=== PATIENT | female | born 1975 | race Caucasian/White ===

== ENCOUNTER 2021-11-01 19:19 | Emergency (ER) | payer OTHER, MEDICARE, SELFPAY ==
[2021-11-01 20:25] VITALS: BP 129/85; PULSE 91; RESP 16; TEMP 37.7; O2SAT 100
--- NOTE | 2021-11-01 21:00 | ED.URI ---
HPI - URI/Sore Throat General Chief Complaint: Upper Respiratory Infection Stated Complaint: headache,eyes burn,tired,body hurts Time Seen by Provider: 11/01/21 20:53 Source: patient and RN notes reviewed Mode of arrival: ambulatory Limitations: no limitations History of Present Illness HPI Narrative: Patient presents today complaining of chills, body aches, headache, cough. Symptoms began 2 days ago. Denies shortness of breath or any additional symptoms. She has been taking TheraFlu and ibuprofen with some relief. She has had some COVID-19 exposures at work. She has not been vaccinated against COVID-19. MD elicited complaint: cough Related Data Home Medications Medication Instructions Recorded Confirmed bupropion HCl 300 mg PO DAILY 11/01/21 11/01/21 conjugated estrogens [Premarin] 0.625 mg PO DAILY 11/01/21 11/01/21 hydrochlorothiazide 25 mg PO DAILY 11/01/21 11/01/21 metoprolol succinate 200 mg PO DAILY 11/01/21 11/01/21 pravastatin 80 mg PO DAILY 11/01/21 11/01/21 Allergies Allergy/AdvReac Type Severity Reaction Status Date / Time No Known Allergies Allergy Verified 11/01/21 20:48 Review of Systems Review of Systems: CONSTITUTIONAL: Denies fever, or sweats.+ Body aches, chills EYES: Denies visual changes, redness, or discharge. ENT: Denies rhinorrhea, congestion, sore throat, or otalgia. CARDIOVASCULAR: Denies chest pain, palpitations, or edema. RESPIRATORY: Denies dyspnea.+ Cough GASTROINTESTINAL: Denies abdominal pain, nausea, vomiting, or diarrhea. GENITOURINARY: Denies dysuria or hematuria. SKIN: Denies rash, itching, or wounds. MUSCULOSKELETAL: Denies back pain, joint pain, or myalgia. NEUROLOGIC: Denies numbness, tingling, or weakness.+ Headache PSYCH: Denies depression or anxiety. PMFSH Comments At time of signature, I have reviewed and agree with nursing past medical, surgical, social and family history unless otherwise noted. Please see nursing chart for further information. There is no relevant family history pertinent to the presenting complaint Exam Narrative: GENERAL: Mildly ill-appearing, well-nourished, and in no acute distress. HEAD: Normocephalic, atraumatic. EYES: EOMI. No redness or drainage. Conjunctivae normal. ENT: Mucous membranes pink and moist. Nares clear. No rhinorrhea. TMs normal bilaterally. Throat mildly erythematous without edema or exudate. Uvula midline. NECK: Normal AROM. Supple. No lymphadenopathy. CHEST: No respiratory distress. Clear to auscultation. HEART: Regular rate and rhythm. No murmur appreciated. Normal peripheral pulses. EXTREMITIES: Normal range of motion. No edema. SKIN: Warm, dry, no rash. Capillary refill normal. Normal skin turgor. NEURO: No focal deficits. Alert and oriented x3. Gait steady. PSYCH: Normal affect. No signs of depression or anxiety. Course Course Level of Care: Express Care Visit Vital Signs Vital signs: Vital Signs Temperature 100 F H 11/01/21 20:25 Pulse Rate 91 11/01/21 20:25 Respiratory Rate 16 11/01/21 20:25 Blood Pressure 129/85 11/01/21 20:25 Pulse Oximetry 100 11/01/21 20:25 Temperature 100 F H 11/01/21 20:25 Pulse Rate 91 11/01/21 20:25 Respiratory Rate 16 11/01/21 20:25 Blood Pressure 129/85 11/01/21 20:25 Pulse Oximetry 100 11/01/21 20:25 Reviewed. Pt has been instructed to follow up with her PCP regarding her elevated blood pressure today. MDM - URI/Sore Throat Differential Diagnosis Differential diagnosis: Likely upper respiratory infection, viral infection and other (COVID-19) Lab Data Attestation: I reviewed the patient's lab results. Labs: Lab Results 11/01/21 Range/Units 20:25 POC SARS CoV-2 Ag Positive (Negative) Critical Care Time Critical Care Time Critical Care Time: No Discharge Plan Discharge Clinical Impression: COVID-19 Patient Disposition: Home, Self-Care Condition: Stable Instructions: COVID-19 (Coronavirus Disease 20
== END 2021-11-01 21:10 | disposition home or self-care (01) ==
PROVIDERS: Emergency Provider Nurse Practitioner
DX: U07.1 COVID-19 (principal); E78.00 Pure hypercholesterolemia, unspecified; I10 Essential (primary) hypertension
CPT/HCPCS: 87426; 99213; C9803; G0463

== ENCOUNTER 2023-04-05 01:23 | Day surgery (SDC) | payer OTHER, MEDICARE, SELFPAY ==
[2023-03-28 13:52] VITALS: BMI 29.0
[2023-04-05 06:57] VITALS: BP 134/80; PULSE 66; RESP 16; TEMP 36.2; O2SAT 100; BMI 28.3
[2023-04-05] MEDS: LACTATED RINGERS 1,000 ML 150 ML IV CONT (07:05)
--- NOTE | 2023-04-05 07:53 | P.PNAN_ITS ---
Anes - Initial Pre Proc Eval Procedure: Operation Date: 04/05/23 08:15 Proposed Procedures p Screening Colonoscopy - Chriss Peguero MD Date/Time: 04/05/23 07:53 Surgeon: Chriss Peguero MD Pre Op Diagnosis: neoplasm screening Patient Data Age: 48 Gender: F Height: 1.73 m Weight: 84.6 kg Last Vital Signs Temp 36.2 C L 04/05/23 06:57 Pulse 66 04/05/23 06:57 Resp 16 04/05/23 06:57 BP 134/80 04/05/23 06:57 Pulse Ox 100 04/05/23 06:57 O2 Del Method Room Air 04/05/23 06:57 Allergies Allergy/AdvReac Type Severity Reaction Status Date / Time No Known Allergies Allergy Verified 04/05/23 06:54 Home Medications Medication Instructions Recorded Confirmed Type bupropion HCl 300 mg 24 hr tablet, 300 mg PO DAILY 11/01/21 04/05/23 History extended release hydrochlorothiazide 25 mg tablet 25 mg PO DAILY 11/01/21 04/05/23 History metoprolol succinate 200 mg 200 mg PO DAILY 11/01/21 04/05/23 History tablet,extended release 24 hr pravastatin 80 mg tablet 80 mg PO DAILY 11/01/21 04/05/23 History docusate sodium 100 mg capsule 100 mg PO DAILY 03/28/23 04/05/23 History ferrous sulfate 325 mg (65 mg 325 mg PO BID 03/28/23 04/05/23 History iron) tablet (FeroSul) Patient hx anesthesia problems: none Family hx anesthesia problems: none Results Review: All pre-operative results and documents have been reviewed as part of the pre- operative evaluation. [facility] Past Medical History Medical History (Updated 04/05/23 @ 07:55 by Bj Cohen MD) Colon cancer screening HTN (hypertension) Hyperlipidemia Lupus (systemic lupus erythematosus) Osteoarthritis Rheumatoid arthritis Social History Social History Smoking packs per day: 0.5 Smoking cigarettes per day: 10.0 Years smoked: 20 Smoking pack-years: 10.00 Smoking status: Former smoker Tobacco type: cigarettes and e-cigarettes/vaping Additional smoking assessment comments: NOW VAPE Alcohol intake: never Substance use: never Substance use type: does not use Living arrangements: with family Spiritual care concerns: No Anes - Eval Final PreProcedure Day of Procedure 04/05/23 07:53 Patient weight: overweight Heart: regular rate and rhythm Lungs: clear to auscultation and normal air movement Airway: Mallampati scale class II Neurological: alert and oriented Last oral intake: >/= 8 hours ASA classification: III Emergent: no Anesthetic plan: proceed Anesthesia type and monitoring: general GIVS Results Review: All pre-operative results and documents have been reviewed as part of the pre-op erative evaluation. Informed Consent: The patient's anesthetic plan and its attendant risks and benefits were discussed with the patient/family/POA. Questions were solicited and answers provided to the satisfaction of the patient/family/POA.
--- NOTE | 2023-04-05 07:53 | PM.HPGS ---
History of Present Illness History of Present Illness Consent: Risks, benefits, and alternatives have been discussed and questions answered. Patient agrees to proceed with procedure. Chief complaint: neoplasm screening Narrative: Winsome Dela Cruz is a 48 year old female here for first screening colonoscopy Review of Systems Constitutional: Constitutional: Denies headache(s) and Denies weakness Eyes: Eyes: Denies blurry vision ENT: Reports Normal hearing present, Denies headache(s) and Denies neck pain Cardiovascular: Cardiovascular: Denies chest pain and Denies dyspnea Respiratory: Respiratory: Denies dyspnea Gastrointestinal: Gastrointestinal: Reports no additional gastrointestinal complaints Genitourinary: Genitourinary: Denies dysuria Musculoskeletal: Musculoskeletal: Denies neck pain Integumentary/Breasts: Skin/Breast: Denies dry skin Neurologic: Reports Normal hearing present, Denies headache(s) and Denies weakness Psychiatric: Psychiatric: Denies anxiety Endocrine: Endocrine: Denies change in body appearance Hematologic/Lymphatic: Hematologic/Lymphatic: Denies easy bleeding Allergic/Immunologic: Allergic/Immunologic: Denies urticaria PMF Past Medical History Medical History (Updated 04/05/23 @ 07:54 by Chriss Peguero MD) Colon cancer screening Social History Social History Smoking packs per day: 0.5 Smoking cigarettes per day: 10.0 Years smoked: 20 Smoking pack-years: 10.00 Smoking status: Former smoker Tobacco type: cigarettes and e-cigarettes/vaping Additional smoking assessment comments: NOW VAPE Alcohol intake: never Substance use: never Substance use type: does not use Living arrangements: with family Spiritual care concerns: No Meds Home Medications and Allergies Home Medications Medication Instructions Recorded Confirmed Type bupropion HCl 300 mg 24 hr tablet, 300 mg PO DAILY 11/01/21 04/05/23 History extended release hydrochlorothiazide 25 mg tablet 25 mg PO DAILY 11/01/21 04/05/23 History metoprolol succinate 200 mg 200 mg PO DAILY 11/01/21 04/05/23 History tablet,extended release 24 hr pravastatin 80 mg tablet 80 mg PO DAILY 11/01/21 04/05/23 History docusate sodium 100 mg capsule 100 mg PO DAILY 03/28/23 04/05/23 History ferrous sulfate 325 mg (65 mg 325 mg PO BID 03/28/23 04/05/23 History iron) tablet (FeroSul) Allergies Allergy/AdvReac Type Severity Reaction Status Date / Time No Known Allergies Allergy Verified 04/05/23 06:54 Vital Signs Vital Signs - 24 hr 04/05/23 06:57 Temperature 97.1 F L Pulse Rate 66 Respiratory Rate 16 Blood Pressure 134/80 Pulse Oximetry 100 Oxygen Delivery Room Air Exam Const: General: comfortable and no acute distress HENMT: Face/Nose/Sinus: Normal nares present Eyes: General: appearance normal, both eyes and all related structures Neck: Neck: no JVD Resp: Auscultation: clear to auscultation bilaterally Cardio: Rate: regular rate Rhythm: regular rhythm GI: Inspection: non-distended GI Palp: Yes Soft to palpation Skin: General skin exam: normal color Neuro: General: gait normal Speech: normal speech Extrem: General: normal to inspection Psych: Mental Status: mental status grossly normal Assessment and Plan Assessment and plan (1) Colon cancer screening: Code(s): Z12.11 - Encounter for screening for malignant neoplasm of colon Status: Acute Assessment and Plan: colonoscopy
[2023-04-05 08:19] VITALS: BP 114/73; PULSE 66; RESP 18; O2SAT 100
[2023-04-05 08:29] VITALS: BP 129/83; PULSE 62; RESP 17; O2SAT 100
[2023-04-05 08:39] VITALS: BP 146/86; PULSE 60; RESP 19; O2SAT 100
== END 2023-04-05 08:45 | disposition home or self-care (01) ==
PROVIDERS: Visit Provider Internal Medicine Gastroenterology
PROC: 0DJD8ZZ Inspection of Lower Intestinal Tract, Via Natural or Artificial Opening Endoscopic (ICD-10-PCS; CPT 45378; principal; 2023-04-05 08:15)
DX: Z12.11 Encounter for screening for malignant neoplasm of colon (principal); D12.4 Benign neoplasm of descending colon; K64.8 Other hemorrhoids; I10 Essential (primary) hypertension; E78.5 Hyperlipidemia, unspecified; M32.9 Systemic lupus erythematosus, unspecified; M06.9 Rheumatoid arthritis, unspecified; F17.290 Nicotine dependence, other tobacco product, uncomplicated
CPT/HCPCS: 45385; 88305; J2001; J2704; J7120

== ENCOUNTER 2023-12-05 08:17 | Outpatient (CLI) | payer OTHER, MEDICARE, SELFPAY ==
--- NOTE | ~2023-12-05 | CT_ITS ---
EXAMINATION: CT hand LT wo con DATE: 12/05/2023 10:12 INDICATION: Pain at the left fingers TECHNIQUE: Computed tomography (CT) of the left hand was performed without intravenous contrast. CT s agittal and coronal reconstructions were created. Automated exposure control and iterative reconstruc tion technique were employed. The dose-length product was 727.04 mGy-cm. COMPARISON: None FINDINGS: Bone alignment is normal. No fracture. Bone islands at the head of the first metacarpal and at the di stal radius. Mild osteoarthritis at the distal radioulnar, triscaphe and first carpal metacarpal join ts. Chronic erosion versus degenerative subarticular cystic change with thin sclerotic margins at the distal pole of the scaphoid. Soft tissues are unremarkable.. IMPRESSION: 1. Typical distribution of mild osteoarthritis at the left hand and wrist. No acute osseous abnormali ty. Reviewed, dictated and finalized at location A. OPHYSIOLOGICAL TECHNICIAN IMPRESSION: 1. Typical distribution of mild osteoarthritis at the left hand and wrist. No a cute osseous abnormality.
== END 2023-12-05 08:18 ==
DX: M19.042 Primary osteoarthritis, left hand (principal); S69.91XD Unspecified injury of right wrist, hand and finger(s), subsequent encounter; X58.XXXD Exposure to other specified factors, subsequent encounter
CPT/HCPCS: 73200